=== PATIENT | female | born 1995 | race Hispanic/Latino ===

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

== ENCOUNTER → 2017-01-02 | Outpatient (CLI) | payer BC | LOC: M LAB 16:27 | PROVIDERS: ATTEND Specialist | DX: Z36.0 Encounter for antenatal screening for chromosomal anomalies (principal); Z3A.00 Weeks of gestation of pregnancy not specified ==

== ENCOUNTER 2017-02-13 15:50 | Outpatient (CLI) | payer BC ==
[~2017-02-13] VITALS: Ht 167.6 cm; Wt 79.9 kg
[2017-02-13 16:04] VITALS: BP 118/70
[2017-02-13 16:11] VITALS: BP 84/52
[2017-02-13 16:29] VITALS: BP 115/70
--- NOTE | 2017-02-13 16:43 | IPNPDOC ---
Text Note Date of Service The patient was seen on 02/13/17. NOTE 21 yo at 21 6/7 weeks gestation with an ED of 06/20/2017 arrived to [facility] with complaints of lower abdominal menstrual like cramping and tightening that started at 0500. Patient states she has rested throughout the day and has taken tylenol. States she drank approx 3-4 water bottles and last ate 2 hours ago a [employer]. She reports going [employer] shopping and working on her feet. Denies leaking of fluid or bleeding. Fetus is active. Patient denies urgency or frequency. O: VSS Abdomen: Soft, non tender, gravid. FHR: 150, + variability. CTX:none A: 21 6/7 weeks gestation. Round ligament discomfort. P: Educated patient on increasing hydration, small frequent meals throughout the day with protein, good proper body mechanics. Supported shoes. Monitor for well being. UA sent Patient discharged home, encouraged to keep next appt. Patient reassured. Vianney Braden CNM Feb 13, 2017 16:43
[2017-02-13] MEDS ORDERED: ACET50TA PO (16:53)
[2017-02-13] MEDS ORDERED: PRENTAB9 PO (16:53)
== END 2017-02-13 17:10 | disposition home or self-care (01) ==
LOC: M LDO 15:50
PROVIDERS: ATTEND Advanced Practice Midwife
DX: O26.892 Other specified pregnancy related conditions, second trimester (principal); Z3A.21 21 weeks gestation of pregnancy; R10.2 Pelvic and perineal pain

== ENCOUNTER → 2017-03-10 | Outpatient (CLI) | payer BC ==
[~2017-03-10] MED LIST: ACET50TA PO; PRENTAB9 PO
[2017-03-10 15:28] LABS: BASO % 0.3 % (0.0-1.0); EOS # 0.2 10^3/uL (0.0-0.50); EOS % 1.2 % (0.0-3.0); IMMATURE GRANULOCYTE % 1.1 % (0-0); LYMPH # 1.7 10^3/uL (1.5-6.5); LYMPH % 11.5 % (24.0-44.0); MEAN CORPUSCULAR HEMOGLOBIN 33.2 pg (27.0-33.0); MEAN CORPUSCULAR HGB CONC 34.3 g/dl (32.0-36.5); MEAN CORPUSCULAR VOLUME 96.8 fl (80.0-96.0); MONO # 1.1 10^3/uL (0.0-0.8); MONO % 7.7 % (0.0-5.0); NEUTROPHILS # 11.3 10^3/uL (1.8-7.7); NEUTROPHILS % 78.2 % (36.0-66.0); PLATELET COUNT, AUTOMATED 233 10^3/uL (150-450); RED CELL DISTRIBUTION WIDTH 12.6 % (11.5-14.5)
[2017-03-14 12:03] LABS: WHITE BLOOD COUNT 14.5 10^3/uL (4.0-10.0)
== END ==
LOC: M LAB 14:05
PROVIDERS: ATTEND Specialist
DX: Z34.83 Encounter for supervision of other normal pregnancy, third trimester (principal)